=== PATIENT | female | born 2000 | race Caucasian/White ===

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

== ENCOUNTER 2019-01-03 10:20 | Emergency (ER) | payer MEDICAID, SELFPAY ==
[2019-01-03 10:21] VITALS: BP 146/77; PULSE 124; RESP 18; TEMP 37.6; O2SAT 97; BMI 42.0
--- NOTE | 2019-01-03 10:59 | ED.VIS.FEGU ---
History of Present Illness Chief Complaint: Flank Pain Informant: Patient, Friend Pain: Pelvic Pain - suprapubic abd discomfort Onset: Days - 4 Context: Gradual Onset Timing: Continuous Quality: Burning Location: Suprapubic Current Severity: Mild Maximum Severity: Mild Issue: Vaginal bleeding. Negative for: Passing clots, Passing tissue Current Severity: - - resolved Maximum Severity: Spotting - sev days ago for 1 day Associated Symptoms: Dysuria, Frequency, Urgency. Negative for: Hematuria Sexually: Active Narrative: occurred after intercourse. discomfort radiating into mid-low back. some nausea, no vomiting or fevers. Past Medical History - Allergies and Home Meds Allergies/Adverse Reactions: Allergies NOVACAINE Adverse Reaction (Mild, Uncoded 01/03/19 10:21) Swelling Primary Care Physician: Cristina Gallegos NP-C [Primary Care Provider] - Past Medical History: None Smoking Status: Current every day smoker Drugs: None Review of Systems General: Denies: Chills, Fever, Sweats Eyes: Denies: Visual changes - bilaterally, Diplopia ENT: Denies: Rhinorrhea, Sore throat Cardiovascular: Denies: Chest pain, Palpitations Respiratory: Denies: Dyspnea, Cough, Dyspnea on exertion Gastrointestinal: Reports: Abdominal pain, Nausea. Denies: Vomiting, Diarrhea, Melena, Hematochezia Genitourinary: Reports: Dysuria, Frequency. Denies: Hematuria Musculoskeletal: Reports: Back pain - nonlateralizing. Denies: Extremity Pain Skin: Denies: Rash, Wounds Neurological: Denies: Headache, Weakness, Numbness Physical Exam Vital Signs/Narrative: Vital Signs Temp Pulse Resp BP Pulse Ox 01/03/19 10:21 99.6 F H 124 H 18 146/77 H 97 Inital Vital Signs reviewed: Yes General: Well nourished, Well developed, - - NAD, well-appearing Head: Normocephalic, Atraumatic Eyes: Perrl, EOMI ENT: Moist mucous membranes, No rhinorrhea Neck: Supple, Nontender Cardiovascular: Regular rate, Regular rhythm, No murmurs, Tachycardia - mild Respiratory: No distress, CTA bilaterally, Chest nontender Abdomen: Soft, Nondistended, Normal bowel sounds, Tender - mild suprapubic only. Negative for: Guarding, Rebound tenderness Back: Nontender, Normal Inspection. Negative for: CVA tenderness Extremities: Nontender, No edema Skin: Normal color, No rash Neurological: Alert, Oriented x3, Cranial nerves II-XII grossly intact, Normal Strength, Normal Sensation, Normal Gait Psychological: Normal affect, Normal Mood Diagnostic/Tx/Re-eval Laboratory Results 01/03/19 01/03/19 10:30 10:30 Urine Color Yellow Urine Clarity Cloudy Urine pH 6.5 Ur Specific [place] 1.010 Urine Protein 30 H Urine Glucose (UA) Normal Urine Ketones Negative Urine Occult Blood 50 H Urine Nitrite Negative Urine Bilirubin Negative Urine Urobilinogen Normal Ur Leukocyte Esterase 500 H Urine RBC 0-5 SEEN Urine WBC 25-50 SEEN Ur Squamous Epith Cells 0-5 SEEN Urine Bacteria 1+ Urine Mucus RARE Urine Test Negative - Medical Decision/Diagnostic Studies Urinalysis consistent with infection. She does not have unilateral flank pain on symptom or exam. She does not have pyelonephritis clinically, and I am not concerned about a possible stone. Therefore I do not think further work-up is needed after the negative test in the urine that shows significant infection. She will be treated with antibiotics, her pain will be treated with Toradol prior to discharge, I did send a culture given possible resistance patterns. ED Disposition - Plan for ED Patient: Disposition: Home or Assisted Living Diagnosis: Acute cystitis without hematuria Instructions: Understanding Urinary Tract Infections (UTIs) Prescriptions: Smz/Tmp Ds [Bactrim Ds] 1 tab PO BID #10 tab Prescription Printed Referrals: Cristina Gallegos NP-C [Primary Care Provider] - 3-5 Days if not improving
[2019-01-03] MEDS: Ondansetron ODT 4 MG Tablet 8 MG PO (11:12)
[2019-01-03 11:16] LABS: Color, Urine Yellow (Yellow); Glucose, Dipstick Normal (Normal); Ketone-Dipstick Negative (Negative); Leukocyte Esterase-Dipstick 500 /ul (Negative); Nitrite-Dipstick Negative (Negative); Occult Blood-Urine 50 /ul (Negative); Protein-Dipstick 30 mg/dl (Negative); Urine Bilirubin Dipstick Negative (Negative); Urine Clarity Cloudy (Clear); Urine Urobilinogen Normal (Normal); Urine pH 6.5 (5.0 - 8.0)
[2019-01-03 11:19] LABS: Internal QC Validated? YES +Cl - CLEAR BKGD; Pregnancy, Urine Negative Negative
[2019-01-03 11:24] LABS: Bacteria 1+ /hpf (None Seen); Mucous, Urine RARE /hpf (<or=2+); Red Blood Cells-Urine 0-5 SEEN /hpf (0-5); Squamous Epithelial Cells - UA 0-5 SEEN /hpf (5-10); White Blood Cells 25-50 SEEN /hpf (0-5)
[2019-01-03] MEDS: Ketorolac 60 MG/2 ML Vial IM (12:47)
[2019-01-03] MEDS: Smz/Tmp Ds Tablet 1 TABLET PO (12:47)
[2019-01-03 12:50] VITALS: PULSE 95; PULSE 96; RESP 18; O2SAT 96; O2SAT 98
== END 2019-01-03 13:07 | disposition home or self-care (01) ==
PROVIDERS: Emergency Provider Emergency Medicine; Family Provider Nurse Practitioner Family; PCP Nurse Practitioner Family
DX: N30.00 Acute cystitis without hematuria (principal); F17.200 Nicotine dependence, unspecified, uncomplicated
CPT/HCPCS: 81001; 81025; 87086; 87088; 87186; 96372; 99282

== ENCOUNTER 2019-03-19 14:04 | Emergency (ER) | payer MEDICAID, SELFPAY ==
[2019-03-19 14:05] VITALS: BP 130/89; PULSE 84; RESP 16; TEMP 36.4; O2SAT 95; BMI 42.9
--- NOTE | 2019-03-19 14:07 | RAD_ITS ---
STUDY: X-RAY - RIGHT FOOT CLINICAL: Female, 18 years old. Right foot pain. TECHNIQUE: 3 view(s) of the foot. COMPARISON: None. FINDINGS: Normal talus, calcaneus, and tarsal bones. Normal visualized subtalar, talonavicular, calcaneocuboid, tarsal and tarsometatarsal articulations. Normal metatarsi. Normal metatarsophalangeal joint of the great toe. Normal tibial and fibular sesamoid bones. Normal interphalangeal joint of the great toe. Normal phalanges of the great toe. Normal second through fifth metatarsophalangeal joints. Normal interphalangeal joints and phalanges of the lesser toes. The soft tissue structures are unremarkable. RAD/Foot min 3 Views IMPRESSION: Normal x-ray examination of the foot. Electronically Signed: Shadi Vaca MD at 15:15 EST Tel , Service support ,
--- NOTE | 2019-03-19 15:04 | ED.VIS.GEN ---
History of Present Illness Chief Complaint: Lower Extremity Injury Detail of Chief Complaint: Right foot stepped on by horse Informant: Patient Onset: Today Current Severity: Moderate Maximum Severity: Moderate Narrative: Patient presents with pain to her right foot, toes 3 through 5 after being stepped on by a horse. She was wearing tennis shoes at the time. There are no open wounds. - Past Medical History (1) Depression Status: Chronic (2) Borderline diabetes Status: Chronic Past Medical History - Allergies and Home Meds Allergies/Adverse Reactions: Allergies NOVACAINE Adverse Reaction (Mild, Uncoded 01/03/19 10:21) Swelling Primary Care Physician: Cristina Gallegos NP-C [Primary Care Provider] - Smoking Status: Current every day smoker Review of Systems General: Denies: Chills, Fever Eyes: Denies: Visual changes - bilaterally ENT: Denies: Bilateral ear pain Cardiovascular: Denies: Chest pain Respiratory: Denies: Dyspnea, Cough Gastrointestinal: Denies: Abdominal pain, Nausea, Vomiting, Diarrhea Musculoskeletal: Reports: Arthralgias, Extremity Pain. Denies: Swelling Skin: Denies: Rash Neurological: Denies: Headache, Parasthesia Hematologic: Denies: Easy bruising, Easy bleeding Allergy: Denies: Uticaria Physical Exam Vital Signs/Narrative: Vital Signs Temp Pulse Resp BP Pulse Ox 03/19/19 14:05 97.6 F L 84 16 130/89 H 95 Inital Vital Signs reviewed: Yes General: Well nourished, Well developed Head: Normocephalic ENT: Moist mucous membranes Neck: Supple Cardiovascular: Regular rate, Regular rhythm Respiratory: No distress, CTA bilaterally Abdomen: Soft, Nontender Extremities: - - Mild tenderness to palpation over the distal right foot. Moderate tenderness to fourth and fifth toes. No open wounds. No subungual hematoma. Normal cap refill and sensation is noted. Skin: Normal color Neurological: Alert, Oriented x3 Psychological: Normal affect Diagnostic/Tx/Re-eval Right foot x-rays reveal no evidence of acute fracture. - Medical Decision Making X-ray results are discussed with the patient. She will be offered a postop shoe and given prescription for naproxen for pain. ED Disposition - Plan for ED Patient: Disposition: Home or Assisted Living Diagnosis: Crush injury of right foot Instructions: CRUSH INJURY, Foot/Toe Prescriptions: Naproxen [Naprosyn] 500 mg PO BID PRN PRN #20 tablet PRN Reason: Pain Score 1-02/10 Referrals: Cristina Gallegos, B[employer]KE [employer]ING FINISHER ASBESTOS-C [Primary Care Provider] - 1 Week if not improving
== END 2019-03-19 15:31 | disposition home or self-care (01) ==
PROVIDERS: Emergency Provider Emergency Medicine; Family Provider Nurse Practitioner Family; PCP Nurse Practitioner Family
DX: S97.81XA Crushing injury of right foot, initial encounter (principal); W55.19XA Other contact with horse, initial encounter; Y93.9 Activity, unspecified; Y92.9 Unspecified place or not applicable; F17.200 Nicotine dependence, unspecified, uncomplicated
CPT/HCPCS: 73630; 99282

== ENCOUNTER 2021-10-29 06:47 | Emergency (ER) | payer MEDICAID, SELFPAY ==
[2021-10-29 06:50] VITALS: BP 145/64; PULSE 82; RESP 23; TEMP 37.2; O2SAT 97; BMI 47.2
--- NOTE | 2021-10-29 07:06 | EKG12_ITS ---
Test Reason : CP Blood Pressure : / mmHG Vent. Rate : 085 BPM Atrial Rate : 085 BPM P-R Int : 152 ms QRS Dur : 100 ms QT Int : 386 ms P-R-T Axes : -08 039 028 degrees QTc Int : 459 ms Normal sinus rhythm Normal ECG Confirmed by RUBY KING, BOWEN ([id number]), scientific editor SUSAN MCCLOUD ([id number]) on 10/31/2021 10:53:20 AM Referred By: RU Confirmed By:BOWEN BELTRAN MD
--- NOTE | 2021-10-29 07:06 | RAD_ITS ---
EXAM: XR CHEST, 1 VIEW CLINICAL INDICATION: chest pain chest pain TECHNIQUE: Frontal view of the chest. This report was created using [employer] report generation technology. COMPARISON: None. FINDINGS: LUNGS AND PLEURAL SPACES: Unremarkable. No consolidation or edema. No pneumothorax. No effusion. HEART: Unremarkable. Cardiac silhouette not enlarged. MEDIASTINUM: Central airways and mediastinal contour are unremarkable. BONES/JOINTS: Unremarkable. SOFT TISSUES: Unremarkable. RAD/Chest 1 View (Portable) IMPRESSION: No radiographic evidence of acute cardiopulmonary disease. Electronically Signed: Berto Flynn MD at 7:43 EDT Reading Location ID and State: [facility] / [place] , Service support ,
--- NOTE | 2021-10-29 07:07 | EDS_ITS ---
HPI History of Present Illness Chief Complaint: Chest Pain Detail of Chief Complaint: Chest pain that started 5:30 AM Informant: patient Onset/Context/Timing Activity at onset: sudden Timing: Continuous Current Severity: 9/10 Worsened By: Breathing Relieved By: Nothing Narrative Narrative: Patient presents to the emergency department complaint of chest discomfort that started this morning around 5:30 AM. Patient states that she got up to use the restroom and had sudden onset of a pressure type pain underneath her left shoulder blade that radiates to the left chest. Patient states that the initially it seemed to get a little bit better but then got severe again. EMS was called. She denies any injury. She never had pain like this before. Pain worse with movement and deep breath. Patient is on control. She denies recent travel or surgery. No history of PE or DVT. No medical history otherwise. Prior Similar Symptoms: [facility] Medical History (Updated 10/29/21 @ 07:[address] Olivia De Leon, DO) Bipolar disorder Depression Home Medications drospirenone 3 mg-ethinyl estradiol 0.03 mg tablet 1 tab PO DAILY 10/29/21 [History Last Taken Unknown] sertraline 100 mg tablet (Zoloft) 100 mg PO DAILY 10/29/21 [History Last Taken Unknown] Allergy/AdvReac Type Severity Reaction Status Date / Time NOVACAINE AdvReac Mild Swelling Uncoded 10/29/21 06:57 Social History Smoking Status: Current every day smoker tobacco type: cigarettes ROS ROS ED Constitutional Constitutional ED: Denies chills or fever(s) Eyes Eyes: Denies blurry vision or change in vision ENT ENT ED: Denies ear pain or sore throat Cardiovascular Cardiovascular: Reports chest pain; Denies palpitations or racing heartbeat Respiratory/Chest Respiratory/Chest: Reports dyspnea; Denies cough Gastrointestinal Gastrointestinal: Denies abdominal pain, constipation, diarrhea or melena Genitourinary Genitourinary ED: Denies dysuria or hematuria Musculoskeletal Musculoskeletal: Reports back pain; Denies arthralgias Integumentary Denies abscess or Abrasions Neurologic Neurologic: Denies headache(s) or paresthesias Psychiatric Psychiatric: Denies anxiety, depression or suicidal ideation Endocrine Endocrinology: Denies cold intolerance or heat intolerance Hematologic/Lymphatic Hematologic/Lymphatic: Denies easy bleeding or easy bruising EXAM Physical Exam Const Vital Signs: 10/29/21 06:50 10/29/21 06:56 10/29/21 07:08 Temperature 99 F Temperature Source Oral Pulse Rate 82 Respiratory Rate 23 H Respiratory Effort Normal Non-Labored Blood Pressure 145/64 H Blood Pressure Mean 91 Pulse Ox 97 Oxygen Delivery Method Room Air Room Air Positive well nourished, well developed and obese General Appearance ED: well developed Nutritional Appearance: obese HEENT Reports TM's clear and moist mucous membranes Tympanic Membrane ED: Yes TM's clear Eyes PERRL and EOMs intact bilaterally Neck no lymphadenopathy and supple Resp normal respiratory effort and clear to auscultation bilaterally Effort and Inspection: Negative for respiratory distress Auscultation: Negative for rales, rhonchi or wheezes Cardio regular rate, regular rhythm, S1 normal heart sound, S2 normal heart sound and no murmurs Peripheral Pulses: pulses 2+ throughout GI normal to inspection, nondistended, normoactive bowel sounds, soft to palpation, non-tender, non-distended and no masses Back/Spine no CVA tenderness and no thoracic nor lumbar tenderness Neuro oriented x3, CN's II-XII intact bilaterally and no sensory deficits noted Sensorium / Orientation: awake, alert, oriented to person, oriented to place and oriented to time Psych mental status grossly normal Skin no rashes or lesions noted and no wounds MDM MDM MDM Narrative Medical decision making narrative: IV line established on arrival. Patient was given morphine and Zofran for pain. Patient lab work-up was unremarkable. EKG and chest x-ray were unremarkable. At this point etiology of her pain is unclear however I suspect more likely musculoskeletal or possibly even pleurisy. Patient does not anything for pain for home and states she will take ibuprofen. Patient believes that it might be muscular in thinks that her father just overreacted and he is going to call the squad. Lab Data Attestation: I reviewed the patient's lab results. Labs: Laboratory Results - last 24 hr 10/29/21 10/29/21 10/29/21 07:10 07:10 07:10 WBC 6.5 RBC 4.62 Hgb 12.0 Hct 37.3 MCV 80.7 L MCH 26.0 L MCHC 32.2 RDW Std Deviation 38.2 RDW Coeff of [place] 13.2 Plt Count 326 MPV 8.9 Immature Gran % (Auto) 0.200 Neut % (Auto) 71.3 H Lymph % (Auto) 18.4 L [place] % (Auto) 8.1 Eos % (Auto) 1.7 Baso % (Auto) 0.3 Absolute Neuts (auto) 4.7 Absolute Lymphs (auto) 1.20 Nucleated RBC % 0 D-Dimer Quant (PE/DVT) 0.39 Sodium 139 Potassium 3.4 L Chloride 107 Carbon Dioxide 23.0 Anion Gap 9 BUN 13 Creatinine 0.80 Estim Creat Clear Calc 86.50 Est GFR (MDRD) Af Amer 113 Est GFR (MDRD) Non-Af 93 BUN/Creatinine Ratio 16.1 Glucose 111 H Calcium 8.7 Troponin I High Sens 4 Radiography Chest X-Ray - ED: 1 View Diagnostic Testing: Clinical Impression(s) from Imaging Studies Chest X-Ray 10/29/21 07:06 IMPRESSION: No radiographic evidence of acute cardiopulmonary disease. Electronically Signed: Berto Flynn MD at 7:43 EDT Reading Location ID and State: [facility] / [place] , Service support , 1 view chest x-ray obtained interpreted by myself no acute disease process. Radiology was in agreement. EKG Initial EKG: Attestation: I personally reviewed and interpreted this EKG as follows: Comments: Sinus rhythm with a rate of 86 bpm with no acute ST segment changes Discharge Plan Triage Chief Complaint: Chest Pain ED Provider: Olivia De Leon Dx/Rx/DC Orders Clinical Impression: Chest pain Instructions: ED Chest Pain, Uncertain Cause Prescriptions: No Action sertraline [Zoloft] 100 mg Tablet 100 mg PO DAILY drospirenone-ethinyl estradiol 3-0.03 mg tablet 1 tab PO DAILY Label Comments: TAKE 1 TABLET BY MOUTH EVERY DAY Primary Care Provider: Cristina Gallegos NP Referrals: Cristina Gallegos NP, HEMATOLOGY NURSE EDUCATOR-C [Primary Care Provider] - 3-5 Days Disposition Disposition: Home, Self Care
--- NOTE | 2021-10-29 07:12 | NURSING ---
NO OLD EKGS
[2021-10-29] MEDS: Ondansetron 4 MG/2 ML Vial IV (07:13)
[2021-10-29] MEDS: Morphine 4 MG/ML Syringe IV (07:13)
[2021-10-29 07:17] LABS: Absolute Neutrophil Count 4.7 X10^3/uL (2.0-7.7); Basophil# 0.02 X10^3/uL; Basophil% 0.3 % (0-1); Eosinophil# 0.11 X10^3/uL; Eosinophils% 1.7 % (0-5); Hematocrit 37.3 % (37-47); Lymphocyte % 18.4 % (19-41); Mean Corp Hgb Conc 32.2 g/dL (32-36); Mean Corpuscular Volume 80.7 fL (81-99); Mean Platelet Vol. 8.9 fl (6.2-12.0); Monocyte# 0.53 X10^3/uL; Monocyte% 8.1 % (0-10); NRBC Flagged by Analyzer 0 % (0-5); Neutrophil # 4.66 X10^3/uL (2.7-7.7); Neutrophil % 71.3 % (47-70); Platelet Count 326 K/mm3 (150-450); RBC Distribution Width CV 13.2 % (11.6-14.6); RBC Distribution Width SD 38.2 fl (35.1-43.9); Red Blood Count 4.62 M/mm3 (4.2-5.4); White Blood Count 6.5 K/mm3 (4.4-11.0)
[2021-10-29 07:35] LABS: Anion Gap 9 (5-15); BUN 13 mg/dL (7-18); BUN/Creat Ratio 16.1 RATIO (10-20); Calcium,Total 8.7 mg/dL (8.5-10.1); Chloride 107 mmol/L (98-107); EST Glomerular Filtration Rate 93 mL/min (>60); Est Glom Filt Rate - Afr Amer 113 mL/min (>60); Glucose 111 mg/dL (74-106); Potassium 3.4 mmol/L (3.5-5.1); Sodium Level 139 mmol/L (136-145); Troponin-I HS (w/2H Reflex) 4 pg/mL (3.0-54.0)
[2021-10-29 07:50] LABS: D-Dimer Quantitative (DVT/PE) 0.39 FEU/ug/m (0.27-0.49)
[2021-10-29 08:06] VITALS: BP 126/70; PULSE 71; RESP 16; O2SAT 95
[2021-10-29 09:13] LABS: Reflex Troponin-HS? (from REC) Y
== END 2021-10-29 08:07 | disposition home or self-care (01) ==
PROVIDERS: Emergency Provider Emergency Medicine; PCP Nurse Practitioner Family; Visit Provider Emergency Medicine
DX: R07.89 Other chest pain (principal); F31.9 Bipolar disorder, unspecified; Z68.42 Body mass index [BMI] 45.0-49.9, adult; F17.210 Nicotine dependence, cigarettes, uncomplicated; Z79.899 Other long term (current) drug therapy; E66.9 Obesity, unspecified
CPT/HCPCS: 71045; 80048; 84484; 85025; 85379; 93005; 96374; 96375; 99285; J7050; A4216; J2405